=== PATIENT | male | born 1950 | race Caucasian/White ===

== ENCOUNTER → 2019-11-30 | Outpatient (CLI) | payer OTHER ==
[~2019-11-30] MED LIST: ALOG25TA2 PO; ATOR40TA78 PO; DULO30CA2 PO; EMPA25TA PO; GABA-827 PO; GLIP10TA13 PO; GLIP5TAB10 PO; IMIQ1CRE TP; METF10007 PO; SILD100T PO; [UNRECOGNIZED DRUG - CODE] EACHEYE
[2019-11-30 15:17] LABS: MICROSCOPIC NOT IND
[2019-11-30 15:21] LABS: BASOPHILS # (AUTO) 0.04 x10^3/uL (0-0.1); BASOPHILS % (AUTO) 0 % (0-1); EOSINOPHILS # (AUTO) 0.24 x10^3/uL (0-0.4); EOSINOPHILS % (AUTO) 2 % (1-7); LYMPHOCYTES # (AUTO) 1.84 x10^3/uL (1-3.4); LYMPHOCYTES % (AUTO) 18 % (22-44); MD NO; MEAN CORPUSCULAR HEMOGLOBIN 29.6 pg (27.5-34.5); MEAN CORPUSCULAR HGB CONC 32.9 g/dL (33.2-36.2); MEAN CORPUSCULAR VOLUME 89.9 fL (81-97); MEAN PLATELET VOLUME 8.3 fL (7.4-10.4); MONOCYTES # (AUTO) 0.78 x10^3/uL (0.2-0.8); MONOCYTES % (AUTO) 8 % (2-9); NEUTROPHILS # (AUTO) 7.21 x10^3/uL (1.8-6.8); NEUTROPHILS % (AUTO) 71 % (42-75); PLATELET COUNT 200 x10^3/uL (130-400); RED BLOOD COUNT 5.47 x10^6/uL (4.38-5.82); RED CELL DISTRIBUTION WIDTH 15.7 % (9.4-14.8)
[2019-11-30 15:24] LABS: CULTURE INDICATED? NO
[2019-11-30 15:30] LABS: ANION GAP 9 mmol/L (5-15); CHLORIDE 103 mmol/L (98-107)
[2019-11-30 15:35] LABS: ALANINE AMINOTRANSFERASE 26 U/L (12-78); ALKALINE PHOSPHATASE 100 U/L (45-117); BILIRUBIN,TOTAL 0.5 mg/dL (0.2-1.0); CREATININE 1.07 mg/dL (0.7-1.3)
[2019-11-30 15:41] LABS: INTERNATIONAL NORMALIZED RATIO 0.94 (0.93-1.1)
== END | disposition home or self-care (01) ==
LOC: STAR 13:34
PROVIDERS: ATTEND Neurological Surgery
DX: Z01.818 Encounter for other preprocedural examination (principal); Z01.810 Encounter for preprocedural cardiovascular examination; Z01.811 Encounter for preprocedural respiratory examination; Z01.82 Encounter for allergy testing; M51.36 Other intervertebral disc degeneration, lumbar region; R79.1 Abnormal coagulation profile; R94.31 Abnormal electrocardiogram [ECG] [EKG]; R82.90 Unspecified abnormal findings in urine
CPT/HCPCS: 36415; 71046; 72110; 80053; 81003; 85025; 85610; 85730; 93005